=== PATIENT | male | born 1955 | race Native Hawaiian/Other Pacific Islander ===

== ENCOUNTER 2020-11-04 08:31 | Outpatient (CLI) | payer BC, OTHER | END 2020-11-04 21:55 | disposition home or self-care (01) | LOC: INF 08:31 | PROVIDERS: ATTEND Internal Medicine | DX: Z23 Encounter for immunization (principal) | CPT/HCPCS: 96372 ==

== ENCOUNTER 2020-11-26 08:22 | Outpatient (CLI) | payer BC, OTHER | END 2020-11-26 20:56 | disposition home or self-care (01) | LOC: INF 08:22 | PROVIDERS: ATTEND Internal Medicine | DX: Z23 Encounter for immunization (principal) | CPT/HCPCS: 96372 ==